=== PATIENT | male | born 1985 | race Caucasian/White ===

== ENCOUNTER 2019-02-28 19:58 | Emergency (ER) | payer OTHER, SELFPAY ==
[2019-02-28 23:22] LABS: #Basophils 0.1 thou/uL (0.0-0.2); #Eosinphils 0.2 thou/uL (0.0-0.7); #Lymphocytes 3.8 thou/uL (1.20-3.40); #Monocytes 1.2 thou/uL (0.11-0.59); #Neutrophils 4.8 thou/uL (1.40-6.50); %Neutrophils 47.1 % (42.0-75.0); Hemoglobin 15.1 g/dL (14.0-18.0); Mean Corpuscular HGB CONC 34.7 g/dL (32.0-36.0); Mean Corpuscular Hemoglobin 33.5 pg (27.0-31.0); Mean Corpuscular Volume 96.8 fL (78.0-98.0); Mean Platelet Volume 9.2 fL (7.4-10.4); Platelet Count 170 thou/uL (130-400); RBC Distribution Width 12.6 % (11.5-14.5); Red Blood Cell (RBC) Count 4.49 mill/uL (4.70-6.10); White Blood Cell (WBC) Count 10.1 thou/uL (4.8-10.8)
[2019-02-28 23:42] LABS: ALT (SGPT) 45 U/L (8-55); AST (SGOT) 51 U/L (5-34); Albumin 3.9 g/dL (3.5-5.0); Alkaline Phosphatase 113 U/L (40-110); Anion Gap 15 mmol/L (10-20); BUN (Urea Nitrogen) 5 mg/dL (8.9-20.6); Bilirubin, Total 0.7 mg/dL (0.2-1.2); CK (CPK) 112 U/L (30-200); Calc. Creatinine Clearance 0 mL/min (70-130); Calcium 8.3 mg/dL (7.8-10.44); Carbon Dioxide 24 mmol/L (22-29); Chloride 100 mmol/L (98-107); Estimated GFR-MDRD 88; Globulin 2.9 g/dL (2.4-3.5); Glucose 99 mg/dL (70-105); Potassium 3.9 mmol/L (3.5-5.1); Protein, Total 6.8 g/dL (6.0-8.3); Sodium 135 mmol/L (136-145)
[2019-02-28] MEDS ORDERED: Ibuprofen 800 MG TAB ONE (23:50)
--- NOTE | 2019-03-01 08:06 | RAD ---
Exam: Chest one view HISTORY:Cough. Fever. Comparison: None FINDINGS: Cardiac silhouette: Normal Aorta: Unremarkable Pulmonary vessels: Normal Costophrenic angles: Clear LUNGS: Right lower lobe and the left lower lobe infiltrate. Pneumothorax: None Osseous abnormalities: None IMPRESSION: Bilateral lower lobe infiltrate. Continued surveillance to ensure resolution.
== END 2019-03-01 00:37 | disposition home or self-care (01) ==
LOC: ERS 19:58
DX: R19.7 Diarrhea, unspecified (principal); R50.9 Fever, unspecified; F17.210 Nicotine dependence, cigarettes, uncomplicated
CPT/HCPCS: 71045; 80053; 82550; 85025; 87804; 96360

== ENCOUNTER 2019-03-07 09:30 | Emergency (ER) | payer OTHER ==
[2019-03-07] MEDS ORDERED: Ondansetron PF 4 MG/2 ML Vial ONE (10:39)
[2019-03-07] MEDS ORDERED: Ketorolac Tromethamine 30 MG/ML VIAL ONE (10:39)
--- NOTE | 2019-03-07 10:39 | RAD ---
EXAM: Chest 2 views: HISTORY: Cough for 10 days COMPARISON: None. FINDINGS: There is a normal-sized cardiomediastinal silhouette. There is no evidence of consolidation, mass, or pleural effusion. The bones are unremarkable. IMPRESSION: No evidence of acute cardiopulmonary disease
[2019-03-07 10:48] LABS: Hemoglobin 16.1 g/dL (14.0-18.0); Mean Corpuscular HGB CONC 33.1 g/dL (32.0-36.0); Mean Corpuscular Hemoglobin 32.9 pg (27.0-31.0); Mean Corpuscular Volume 99.4 fL (78.0-98.0); Mean Platelet Volume 8.9 fL (7.4-10.4); Platelet Count 292 thou/uL (130-400); Red Blood Cell (RBC) Count 4.88 mill/uL (4.70-6.10); White Blood Cell (WBC) Count 13.2 thou/uL (4.8-10.8)
[2019-03-07 11:10] LABS: ALT (SGPT) 45 U/L (8-55); AST (SGOT) 53 U/L (5-34); Albumin 3.8 g/dL (3.5-5.0); Alkaline Phosphatase 134 U/L (40-110); Anion Gap 13 mmol/L (10-20); BUN (Urea Nitrogen) 5 mg/dL (8.9-20.6); Bilirubin, Total 0.7 mg/dL (0.2-1.2); Calc. Creatinine Clearance 0 mL/min (70-130); Calcium 8.8 mg/dL (7.8-10.44); Carbon Dioxide 29 mmol/L (22-29); Chloride 103 mmol/L (98-107); Estimated GFR-MDRD Greater than 90; Globulin 3.2 g/dL (2.4-3.5); Glucose 119 mg/dL (70-105); Lipase 13 U/L (8-78); Potassium 4.5 mmol/L (3.5-5.1); Sodium 140 mmol/L (136-145)
[2019-03-07 11:28] LABS: Band 10 % (5-11); Eosinophils 7 % (0-10); Lymphocytes 15 % (21-51); Metamyelocyte 1 % (0-0); Neutrophil 34 % (42-75); Reactive Lymphocytes 33 % (0-10)
[2019-03-07 11:29] LABS: Platelet Morphology Comment Appears Adequate
[2019-03-07 11:30] LABS: MDiff Complete? YES
== END 2019-03-07 11:52 | disposition home or self-care (01) ==
LOC: ERS 09:30
DX: J18.9 Pneumonia, unspecified organism (principal); F17.210 Nicotine dependence, cigarettes, uncomplicated; Z71.6 Tobacco abuse counseling; Z79.51 Long term (current) use of inhaled steroids
CPT/HCPCS: 36415; 71046; 80053; 83690; 85025; 85060; 87804; 96361; 96374; 96375; 99406; J1885; J2405